=== PATIENT | female | born 1945 | race Caucasian/White ===

== ENCOUNTER 2023-07-22 11:57 | Emergency (ER) | payer MEDICARE, OTHER, SELFPAY ==
[2023-07-22 12:17] VITALS: BP 110/64
--- NOTE | 2023-07-22 13:49 | ED.GENMED ---
History of Present Illness
General
Chief Complaint: Head Injury
Time Seen by Provider: 07/22/23 13:22
Travel History
Have you had any contact with someone who has COVID-19?: No
Do you have any symptoms of coronavirus? Fever > 100 degrees, chills, cough, shortness of breath, sore throat, loss of taste or smell, muscle aches, or headache?: No
History of Present Illness
History of Present Illness:
HPI: Patient presents after a fall that occurred last night. She states she tripped on her long jacket causing her to strike the left periorbital region as well as her left knee (no significant pain to the left knee). She has no headache. She
denies being on anticoagulation or antiplatelets. She has no dizziness.
EXAM:
GENERAL: Well appearing in no distress
HEENT: Moist oral mucosa, there is periorbital ecchymosis along with medial subconjunctival hemorrhage to the left eye, there is tenderness over the frontal bone above the left eye, hearing aids noted
CARDIOVASCULAR: No murmurs, normal heart rate and rhythm, No chest wall tenderness
PULMONARY: No respiratory distress, breath sounds are clear and equal
ABDOMEN: Soft with no peritoneal signs, no tenderness
NEUROLOGIC: Excellent strength all extremities, no coordination deficits
PSYCHIATRIC: Appropriate mental status, normal insight and judgement
EXTREMITIES: Nontender, no edema, moves all extremities equally
SKIN: No rash, no lesions
ED COURSE:
1:30 PM: I initially evaluated patient
NUMBER AND COMPLEXITY OF PROBLEMS ADDRESSED AT THE ENCOUNTER
� Chronic conditions affecting care: Diverticular disease, hard of hearing, anxiety depression, has had bilateral knee replacements
� Acute Exacerbation and/or Progression of Chronic Illness:
� Differential Diagnosis includes:
AMOUNT AND/OR COMPLEXITY OF DATA TO BE REVIEWED AND ANALYZED
� I performed an independent evaluation of and my interpretation is:
EKG:
CT: I personally viewed CT imaging of the brain and there is no traumatic acute abnormality
X-rays:
Laboratory Studies:
Other:
� Review of other/old records: I reviewed physical therapy notes regarding left shoulder pain from last month
� Clinical information was obtained by an independent historian: Spoke to at bedside
� Prescriptions/Medications Considered but not given:
� Further testing considered but not performed:
RISK OF COMPLICATIONS AND/OR MORBIDITY OR MORTALITY OF PATIENT MANAGEMENT
� Social determinants of health affecting care: Lives at home
� Discussion with other providers:
� Escalation of care including admission/observation vs risk of discharge considered: Given patient's age of 78 years along with evidence of craniofacial trauma, will obtain CT imaging of the brain. CT imaging unremarkable as of
4 PM. Will discharge to home.
Past History
Past History
ED Past Medical History: None
ED Past Surgical History: Appendectomy, Orthopedic and Other
Social History
Tobacco: Non-smoker
Personal:
Living: with family
Employment: Employed
Phy Exam
Physical Exam
Physical Exam:
See HPI
Course
Orders/Labs/Results
Orders:
Orders
07/22/23 13:31
CT Head W/o Iv Contrast Urgent
Comment:
Reason For Exam: head trauma, periorbital ecchymosis
Vital Signs
Initial and Last Documented VS:
Initial Vital Signs
Temp Pulse Resp BP Pulse Ox
97.9 F 100 18 110/64 97
07/22/23 12:17 07/22/23 12:17 07/22/23 12:17 07/22/23 12:17 07/22/23 12:17
Last Documented Vital Signs
Temp Pulse Resp BP Pulse Ox
97.9 F 100 18 110/64 97
07/22/23 12:17 07/22/23 12:17 07/22/23 12:17 07/22/23 12:17 01/30/24 12:17
*Critical Care Note
Total Time (30-74mins, 75-104mins- exclusive of procedures): Not Applicable
ED Attending Note
-
Portions of this chart may have been created with voice recognition software.� Occasional wrong word or��sound alike� substitutions may have occurred due to the inherent limitations of voice recognition software.
Discharge Plan
Departure
Patient Disposition: Home (Routine Discharge)
Date of Disposition: 07/22/23
Time of Disposition: 16:01
Patient with high blood pressure during this ER visit?: Yes
Discharge Problem:
Head injury
Instructions: Head Injury in Adults (DC)
Prescriptions:
No Action
acetaminophen 500 mg Tablet
1,000 mg PO Q6H Qty: 60 0RF
Rx Instructions:
DO NOT exceed >4000 mg daily.
hydrochlorothiazide 25 mg Tablet
25 mg PO PRN PRN (Reason: water retention) Qty: 1 0RF
Rx Instructions:
HOLD if systolic blood pressure <130 while on Tramadol.
meloxicam submicronized 5 MG capsule
15 mg PO DAILY Qty: 30 0RF
Rx Instructions:
Take with food.
Do NOT take within 2 hours of Aspirin.
amoxicillin 500 mg Capsule
2,000 mg PO PRN PRN (Reason: dental appt)
Rx Instructions:
dentist
hydroxyzine HCl 10 mg Tablet
10 mg PO PRN PRN (Reason: itching)
loratadine [Claritin] 10 mg Tablet
10 mg PO DAILY PRN (Reason: runny nose)
tramadol 50 mg Tablet
50 mg PO Q6H PRN (Reason: pain)
mupirocin 2 % ointment
1 applic topical BID Qty: 1 0RF
Referrals:
Apple Morley DO [Family Provider] -
Activity Restrictions/Additional Instructions:
The CAT scan of the brain shows no bleeding. Return here if worse.
Interventions
Interventions:
*Risk Screen - Suicide Last Done: 07/22/23 12:17
*General Assessment Last Done: 07/22/23 13:28
*Neglect/Abuse Screening Last Done: 07/22/23 12:17
ED- Fall Risk Assessment Last Done: 07/22/23 13:28
*ED COVID-19 Vaccine History Last Done: 07/22/23 12:17
ED- Neurological Assessment Last Done: 07/22/23 13:28
ED-Skin Assessment Last Done: 07/22/23 13:28
== END 2023-07-22 16:28 | disposition home or self-care (01) ==
LOC: EMR 11:57
PROVIDERS: EMERGENCY PHYSICIAN Emergency Medicine; FAMILY PHYSICIAN Family Medicine
DX: S09.90XA Unspecified injury of head, initial encounter (principal); S00.12XA Contusion of left eyelid and periocular area, initial encounter; S89.92XA Unspecified injury of left lower leg, initial encounter; W18.39XA Other fall on same level, initial encounter; R03.0 Elevated blood-pressure reading, without diagnosis of hypertension; H11.32 Conjunctival hemorrhage, left eye; Z96.653 Presence of artificial knee joint, bilateral; K57.90 Diverticulosis of intestine, part unspecified, without perforation or abscess without bleeding; H91.90 Unspecified hearing loss, unspecified ear; Z88.5 Allergy status to narcotic agent
CPT/HCPCS: 99284; 70450

== ENCOUNTER → 2023-09-12 14:25 | Outpatient (REF) | payer MEDICARE, OTHER, SELFPAY | LOC: WDC 14:25 | PROVIDERS: ATTENDING PHYSICIAN Internal Medicine Hematology & Oncology; FAMILY PHYSICIAN Family Medicine | DX: Z12.31 Encounter for screening mammogram for malignant neoplasm of breast (principal) | CPT/HCPCS: 77063; 77067 ==

== ENCOUNTER 2023-11-10 23:02 | Emergency (ER) | payer MEDICARE, OTHER, SELFPAY ==
[2023-11-10 23:10] VITALS: BP 112/78
--- NOTE | 2023-11-11 02:53 | ED.GENMED ---
History of Present Illness
General
Chief Complaint: Skin Surface Trauma
Source: patient
Exam Limitations: none
Time Seen by Provider: 11/11/23 02:31
Nursing documentation reviewed up to this point in time: agreed with
Travel History
Have you had any contact with someone who has COVID-19?: No
Do you have any symptoms of coronavirus? Fever > 100 degrees, chills, cough, shortness of breath, sore throat, loss of taste or smell, muscle aches, or headache?: No
History of Present Illness
History of Present Illness:
Patient presents to ED secondary to lower lip laceration, which occurred shortly arrival, when she tripped over and fell onto her 's walker. Patient denies any other injuries from the fall. Denies tooth ache. Denies jaw pain. Denies neck
pain.
Past History
Past History
ED Past Medical History: None
ED Past Surgical History: Appendectomy, Orthopedic and Other
Social History
Tobacco: Non-smoker
Personal:
Living: with family
Employment: Employed
Review of Systems
Review of Systems
Allergies reviewed?: Yes
All Other Systems: ROS reviewed and negative except as documented in HPI and ROS
Constitutional: Reports no symptoms
Skin: Reports other (Lip laceration)
Phy Exam
Physical Exam
Physical Exam:
Physical Exam
General: no apparent distress, not acutely ill. afebrile
Head: nc/at.
Neck: supple. normal range of motion
Neuro: alert and oriented. no focal neurological deficits
Skin: an approx 2cm superficial laceration noted over lower lip, not crossing vermilion border. no active bleeding
Psychiatric: well kept. interactive and cooperative
Course
Vital Signs
Initial and Last Documented VS:
Initial Vital Signs
Temp Pulse Resp BP Pulse Ox
97.9 F 84 22 112/78 98
11/10/23 23:10 11/10/23 23:10 11/10/23 23:10 11/10/23 23:10 11/10/23 23:10
Last Documented Vital Signs
Temp Pulse Resp BP Pulse Ox
97.9 F 84 22 112/78 98
11/10/23 23:10 11/10/23 23:10 11/10/23 23:10 11/10/23 23:10 11/10/23 23:10
Procedures
Laceration Closure
Lower Lip:
Status of Wound: clean
Size of Wound in cm: 2
Description of Wound Edges: sharp
Preparation: cleaned with SurClens
Anesthesia: 1% Lidocaine with epi
Revision/Debridement: routine- no revision
Type of Closure: single layer closure
Skin Closure Material: 5-0 vicryl
Number of sutures: 4
MDM/Problems Addressed
MDM/Problems Addressed:
Wound well-approximated with 4 absorbable sutures. No other injuries noted on exam. Advised PCP follow-up, especially if sutures are still present after 10 days. Patient otherwise is afebrile, neurologically intact, at time of discharge, to the
care of her family.
*Critical Care Note
Total Time (30-74mins, 75-104mins- exclusive of procedures): Not Applicable
ED Attending Note
-
Portions of this chart may have been created with voice recognition software.� Occasional wrong word or��sound alike� substitutions may have occurred due to the inherent limitations of voice recognition software.
Discharge Plan
Departure
Patient Disposition: Home (Routine Discharge)
Date of Disposition: 11/11/23
Time of Disposition: 02:53
Patient with high blood pressure during this ER visit?: No
Condition: Good
Discharge Problem:
Laceration of lip
Instructions: Laceration Repair With Stitches (DC)
Prescriptions:
No Action
acetaminophen 500 mg Tablet
1,000 mg PO Q6H Qty: 60 0RF
Rx Instructions:
DO NOT exceed >4000 mg daily.
hydrochlorothiazide 25 mg Tablet
25 mg PO PRN PRN (Reason: water retention) Qty: 1 0RF
Rx Instructions:
HOLD if systolic blood pressure <130 while on Tramadol.
meloxicam submicronized 5 MG capsule
15 mg PO DAILY Qty: 30 0RF
Rx Instructions:
Take with food.
Do NOT take within 2 hours of Aspirin.
amoxicillin 500 mg Capsule
2,000 mg PO PRN PRN (Reason: dental appt)
Rx Instructions:
dentist
hydroxyzine HCl 10 mg Tablet
10 mg PO PRN PRN (Reason: itching)
loratadine [Claritin] 10 mg Tablet
10 mg PO DAILY PRN (Reason: runny nose)
tramadol 50 mg Tablet
50 mg PO Q6H PRN (Reason: pain)
mupirocin 2 % ointment
1 applic topical BID Qty: 1 0RF
Activity Restrictions/Additional Instructions:
As discussed, please follow-up with your primary care physician with any further concerns. If sutures are still present after 10 days, please speak with your primary care physician for potential removal.
Interventions
Interventions:
*Risk Screen - Suicide Last Done: 11/10/23 23:10
*Neglect/Abuse Screening Last Done: 11/10/23 23:10
Discharge Date and Time
Print Language: KOSOVAN
== END 2023-11-11 03:07 | disposition home or self-care (01) ==
LOC: EMR 23:02
PROVIDERS: EMERGENCY PHYSICIAN Emergency Medicine; FAMILY PHYSICIAN Family Medicine
DX: S01.511A Laceration without foreign body of lip, initial encounter (principal); W18.09XA Striking against other object with subsequent fall, initial encounter; K57.90 Diverticulosis of intestine, part unspecified, without perforation or abscess without bleeding; M19.90 Unspecified osteoarthritis, unspecified site; F41.9 Anxiety disorder, unspecified; F32.A Depression, unspecified; Z85.72 Personal history of non-Hodgkin lymphomas; Z96.611 Presence of right artificial shoulder joint; Z96.651 Presence of right artificial knee joint; Z88.5 Allergy status to narcotic agent; Z88.8 Allergy status to other drugs, medicaments and biological substances
CPT/HCPCS: 99282; 12011

== ENCOUNTER → 2024-03-08 14:05 | Outpatient (REF) | payer MEDICARE, OTHER, SELFPAY ==
[2024-03-08 14:25] LABS: Ionized Calcium 1.16 mMOL/L (1.15-1.33)
[2024-03-08 14:56] LABS: Mean Corp Hgb Conc. 33.3 g/dL (33.0-37.0); Mean Corpuscular Hgb 29.9 pg (27.0-31.0); Mean Corpuscular Volume 89.6 fL (81.0-99.0); Mean Platelet Volume 9.8 fL (7.4-10.4); Platelet Count 266 10^3/uL (130-400); Red Blood Cell Count 4.02 10^6/uL (4.20-5.40); White Blood Cell Count 12.9 10^3/uL (4.8-10.8)
[2024-03-08 15:03] LABS: ALT (SGPT) 31 U/L (0-35); AST (SGOT) 36 U/L (14-36); Albumin 4.3 g/dl (3.5-5.0); Alkaline Phosphatase 115 U/L (38-126); Blood Urea Nitrogen 21 mg/dl (7-17); Calcium 9.6 mg/dl (8.4-10.2); Carbon Dioxide 31 mmol/L (22-30); Chloride 102 mmol/L (98-107); Glucose 91 mg/dl (70-99); LDH 259 U/L (120-246); Sodium 142 mmol/L (135-145); Total Bilirubin 1.2 mg/dl (0.2-1.3); Total Protein 6.7 g/dl (6.3-8.2); eGFR > 60.00
[2024-03-08 16:28] LABS: Atypical Lymphocytes 20 %; Eosinophils 2 % (0-6); Lymphocytes 35 % (20-51); Monocytes 14 % (2-9); Normal RBC Morphology Yes; Platelets Checked Yes; Segmented Neutrophils 29 % (42-75); Total Cells Counted 100
[2024-03-10 11:51] LABS: Intact PTH 47.4 pg/ml (13.6-85.8)
== END ==
LOC: REG 14:05
PROVIDERS: ATTENDING PHYSICIAN Family Medicine
DX: J06.9 Acute upper respiratory infection, unspecified (principal); R05.1 Acute cough; R04.2 Hemoptysis; R21 Rash and other nonspecific skin eruption; E83.52 Hypercalcemia
CPT/HCPCS: 36415; 71046; 80053; 82330; 83615; 83970; 85025

== ENCOUNTER → 2024-03-16 14:40 | Outpatient (REF) | payer MEDICARE, OTHER, SELFPAY ==
[2024-03-16 15:33] LABS: Hematocrit 38.7 % (37.0-47.0); Hemoglobin 12.7 g/dL (12.0-16.0); Mean Corp Hgb Conc. 32.8 g/dL (33.0-37.0); Mean Corpuscular Hgb 30.6 pg (27.0-31.0); Mean Corpuscular Volume 93.3 fL (81.0-99.0); Mean Platelet Volume 10.1 fL (7.4-10.4); Platelet Count 213 10^3/uL (130-400); Red Blood Cell Count 4.15 10^6/uL (4.20-5.40); Red Cell Dist. Width 13.5 % (11.5-14.5)
[2024-03-16 15:49] LABS: ALT (SGPT) 35 U/L (0-35); AST (SGOT) 43 U/L (14-36); Albumin 4.4 g/dl (3.5-5.0); Alkaline Phosphatase 108 U/L (38-126); Blood Urea Nitrogen 29 mg/dl (7-17); Calcium 9.4 mg/dl (8.4-10.2); Carbon Dioxide 31 mmol/L (22-30); Chloride 103 mmol/L (98-107); Glucose 84 mg/dl (70-99); LDH 289 U/L (120-246); Potassium 4.6 mmol/L (3.5-5.1); Sodium 142 mmol/L (135-145); Total Bilirubin 1.5 mg/dl (0.2-1.3); Total Protein 6.7 g/dl (6.3-8.2); eGFR > 60.00
[2024-03-16 16:23] LABS: Absolute Neutrophils -Man Diff 4.2 10^3/uL (1.4-6.5); Atypical Lymphocytes 13 %; Band Neutrophils 0 % (0-3); Eosinophils 1 % (0-6); Lymphocytes 47 % (20-51); Metamyelocytes 1 % (-); Monocytes 10 % (2-9); Segmented Neutrophils 28 % (42-75)
[2024-03-16 16:28] LABS: Normal RBC Morphology Yes; Platelets Checked Yes; Total Cells Counted 100
== END ==
LOC: REG 14:40
PROVIDERS: ATTENDING PHYSICIAN Internal Medicine Hematology & Oncology; FAMILY PHYSICIAN Family Medicine
DX: C85.89 Other specified types of non-Hodgkin lymphoma, extranodal and solid organ sites (principal); C91.10 Chronic lymphocytic leukemia of B-cell type not having achieved remission
CPT/HCPCS: 36415; 80053; 82784; 83521; 83615; 84155; 84165; 85025; 86334

== ENCOUNTER 2024-03-23 14:45 | Emergency (ER) | payer MEDICARE, OTHER, SELFPAY ==
[2024-03-23 14:52] VITALS: BP 122/80
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
[2024-03-23 16:18] VITALS: BMI 26.3
[2024-03-23 16:58] LABS: ALT (SGPT) 39 U/L (0-35); AST (SGOT) 42 U/L (14-36); Albumin 4.5 g/dl (3.5-5.0); Alkaline Phosphatase 114 U/L (38-126); Blood Urea Nitrogen 23 mg/dl (7-17); Calcium 9.7 mg/dl (8.4-10.2); Carbon Dioxide 26 mmol/L (22-30); Chloride 101 mmol/L (98-107); Estimated Creatinine Clearance 58 ml/min; Glucose 92 mg/dl (70-99); Potassium 3.8 mmol/L (3.5-5.1); Sodium 140 mmol/L (135-145); eGFR > 60.00
[2024-03-23 17:00] LABS: Hematocrit 38.4 % (37.0-47.0); Mean Corp Hgb Conc. 33.9 g/dL (33.0-37.0); Mean Corpuscular Hgb 29.5 pg (27.0-31.0); Mean Corpuscular Volume 87.1 fL (81.0-99.0); Mean Platelet Volume 9.9 fL (7.4-10.4); Platelet Count 248 10^3/uL (130-400); Red Blood Cell Count 4.41 10^6/uL (4.20-5.40); Red Cell Dist. Width 13.6 % (11.5-14.5); Troponin I < 0.012 ng/ml; White Blood Cell Count 10.8 10^3/uL (4.8-10.8)
[2024-03-23 17:27] LABS: % Basophils 0.8 % (0-2); % Eosinophils 1.3 % (0-6); % Immature Granulocytes 0.2 % (0-0.5); % Lymphocytes 43.3 % (20.5-51.1); % Neutrophils 45.4 % (42.2-75.2); Absolute Basophils 0.1 10^3/uL (0-0.2); Absolute Eosinophils 0.1 10^3/uL (0-0.7); Absolute Lymphocytes 4.7 10^3/uL (1.2-3.4); Absolute Neutrophils 4.9 10^3/uL (1.4-6.5); Nucleated Red Blood Cells % 0 %
[2024-03-23 17:28] LABS: TSH Reflex To Free T4 0.15 uIU/ml (0.47-4.68)
[2024-03-23 17:58] LABS: Free T4 1.25 ng/dl (0.78-2.19)
== END 2024-03-23 18:33 | disposition home or self-care (01) ==
LOC: EMR 14:45
PROVIDERS: EMERGENCY PHYSICIAN Emergency Medicine; FAMILY PHYSICIAN Family Medicine
DX: R00.2 Palpitations (principal); Z90.49 Acquired absence of other specified parts of digestive tract
CPT/HCPCS: 99284; 70450; 80053; 84439; 84443; 84484; 85025; 93005

== ENCOUNTER → 2024-05-14 11:08 | Outpatient (REF) | payer MEDICARE, OTHER, SELFPAY | LOC: RAD 11:08 | PROVIDERS: ATTENDING PHYSICIAN Family Medicine | DX: H53.9 Unspecified visual disturbance (principal); I67.89 Other cerebrovascular disease; I47.20 Ventricular tachycardia, unspecified | CPT/HCPCS: 93880 ==

== ENCOUNTER → 2024-06-02 10:46 | Outpatient (REF) | payer MEDICARE, OTHER, SELFPAY ==
[2024-06-02 12:47] LABS: Erythrocyte Sed Rate 15 mm/hour (0-20)
[2024-06-02 14:16] LABS: ALT (SGPT) 26 U/L (0-35); AST (SGOT) 31 U/L (14-36); Albumin 4.5 g/dl (3.5-5.0); Alkaline Phosphatase 99 U/L (38-126); Blood Urea Nitrogen 31 mg/dl (7-17); Calcium 9.1 mg/dl (8.4-10.2); Carbon Dioxide 29 mmol/L (22-30); Chloride 103 mmol/L (98-107); Glucose 76 mg/dl (70-99); Iron 132 ug/dl (37-170); Potassium 4.4 mmol/L (3.5-5.1); Sodium 141 mmol/L (135-145); eGFR > 60.00
[2024-06-02 14:25] LABS: Percent Saturation 45 % (20-50); Total Iron Binding Capacity 291 ug/dl (265-497)
[2024-06-02 14:50] LABS: Free T4 0.91 ng/dl (0.78-2.19)
[2024-06-02 15:03] LABS: TSH 0.13 uIU/ml (0.47-4.68); TSH Reflex To Free T4 0.13 uIU/ml (0.47-4.68)
[2024-06-02 15:08] LABS: Ferritin 73.2 ng/ml (11.1-264.0)
== END ==
LOC: REG 10:46
PROVIDERS: ATTENDING PHYSICIAN Family Medicine; OTHER PHYSICIAN Internal Medicine Endocrinology, Diabetes & Metabolism
DX: L29.9 Pruritus, unspecified (principal); E21.0 Primary hyperparathyroidism; E05.90 Thyrotoxicosis, unspecified without thyrotoxic crisis or storm
CPT/HCPCS: 36415; 80053; 82728; 83540; 83550; 84439; 84443; 85652; 86140

== ENCOUNTER → 2024-06-07 15:03 | Outpatient (REF) | payer MEDICARE, OTHER, SELFPAY | LOC: RCS 15:03 | PROVIDERS: ATTENDING PHYSICIAN Nurse Practitioner; FAMILY PHYSICIAN Family Medicine | DX: R00.2 Palpitations (principal); R42 Dizziness and giddiness; I10 Essential (primary) hypertension | CPT/HCPCS: 93306 ==

== ENCOUNTER → 2024-09-08 08:52 | Outpatient (REF) | payer MEDICARE, OTHER, SELFPAY ==
[2024-09-08 10:17] LABS: Hematocrit 39.4 % (37.0-47.0); Hemoglobin 12.9 g/dL (12.0-16.0); Mean Corp Hgb Conc. 32.7 g/dL (33.0-37.0); Mean Corpuscular Hgb 29.8 pg (27.0-31.0); Mean Platelet Volume 10.5 fL (7.4-10.4); Platelet Count 199 10^3/uL (130-400); Red Blood Cell Count 4.33 10^6/uL (4.20-5.40); White Blood Cell Count 11.1 10^3/uL (4.8-10.8)
[2024-09-08 11:04] LABS: Absolute Neutrophils -Man Diff 3.1 10^3/uL (1.4-6.5); Atypical Lymphocytes 22 %; Band Neutrophils 0 % (0-3); Eosinophils 3 % (0-6); Lymphocytes 37 % (20-51); Monocytes 10 % (2-9); Segmented Neutrophils 28 % (42-75); Total Cells Counted 100
[2024-09-08 11:05] LABS: Platelets Checked Yes
[2024-09-08 11:07] LABS: Normal RBC Morphology Yes
[2024-09-08 12:36] LABS: Free T4 0.94 ng/dl (0.78-2.19)
[2024-09-08 12:50] LABS: TSH 0.29 uIU/ml (0.47-4.68)
[2024-09-08 13:09] LABS: ALT (SGPT) 24 U/L (0-35); AST (SGOT) 28 U/L (14-36); Albumin 4.5 g/dl (3.5-5.0); Alkaline Phosphatase 111 U/L (38-126); Blood Urea Nitrogen 30 mg/dl (7-17); Calcium 9.3 mg/dl (8.4-10.2); Carbon Dioxide 27 mmol/L (22-30); Chloride 102 mmol/L (98-107); Glucose 82 mg/dl (70-99); Potassium 4.2 mmol/L (3.5-5.1); Sodium 139 mmol/L (135-145); Total Protein 6.7 g/dl (6.3-8.2); eGFR > 60.00
[2024-09-08 13:55] LABS: LDH 217 U/L (120-246)
[2024-09-10 03:44] LABS: Thyroid Stim. Immunoglobulin <0.10 IU/L (<=0.54)
[2024-09-10 09:21] LABS: TSH Receptor Antibody <1.10 IU/L (<=1.75)
== END ==
LOC: REG 08:52
PROVIDERS: ATTENDING PHYSICIAN Internal Medicine Hematology & Oncology; FAMILY PHYSICIAN Family Medicine; REFERRING PHYSICIAN Internal Medicine Endocrinology, Diabetes & Metabolism
DX: C85.89 Other specified types of non-Hodgkin lymphoma, extranodal and solid organ sites (principal); C91.10 Chronic lymphocytic leukemia of B-cell type not having achieved remission; E05.90 Thyrotoxicosis, unspecified without thyrotoxic crisis or storm
CPT/HCPCS: 36415; 80053; 83520; 83615; 84439; 84443; 84445; 85025

== ENCOUNTER → 2024-10-01 15:21 | Outpatient (REF) | payer MEDICARE, OTHER, SELFPAY | LOC: WDC 15:21 | PROVIDERS: ATTENDING PHYSICIAN Internal Medicine Hematology & Oncology; FAMILY PHYSICIAN Family Medicine | DX: Z12.31 Encounter for screening mammogram for malignant neoplasm of breast (principal); C85.89 Other specified types of non-Hodgkin lymphoma, extranodal and solid organ sites; C91.10 Chronic lymphocytic leukemia of B-cell type not having achieved remission | CPT/HCPCS: 77063; 77067 ==

== ENCOUNTER → 2025-03-09 10:15 | Outpatient (REF) | payer MEDICARE, OTHER, SELFPAY ==
[2025-03-09 11:05] LABS: Hematocrit 37.7 % (37.0-47.0); Hemoglobin 12.5 g/dL (12.0-16.0); Mean Corp Hgb Conc. 33.2 g/dL (33.0-37.0); Mean Corpuscular Volume 89.3 fL (81.0-99.0); Platelet Count 203 10^3/uL (130-400); Red Cell Dist. Width 12.8 % (11.5-14.5)
[2025-03-09 11:56] LABS: Absolute Neutrophils -Man Diff 3.7 10^3/uL (1.4-6.5)
[2025-03-09 11:57] LABS: Normal RBC Morphology Yes; Platelets Checked Yes; Total Cells Counted 100
[2025-03-09 13:17] LABS: ALT (SGPT) 32 U/L (0-35); AST (SGOT) 28 U/L (14-36); Albumin 4.5 g/dl (3.5-5.0); Alkaline Phosphatase 98 U/L (38-126); Blood Urea Nitrogen 32 mg/dl (7-17); Calcium 9.7 mg/dl (8.4-10.2); Carbon Dioxide 27 mmol/L (22-30); Chloride 106 mmol/L (98-107); Glucose 80 mg/dl (70-99); Potassium 4.0 mmol/L (3.5-5.1); Sodium 140 mmol/L (135-145); Total Protein 6.9 g/dl (6.3-8.2); eGFR > 60.00
[2025-03-09 13:46] LABS: TSH 0.57 uIU/ml (0.47-4.68)
== END ==
LOC: REG 10:15
PROVIDERS: ATTENDING PHYSICIAN Family Medicine
DX: R61 Generalized hyperhidrosis (principal); C91.10 Chronic lymphocytic leukemia of B-cell type not having achieved remission; E21.0 Primary hyperparathyroidism
CPT/HCPCS: 36415; 80053; 82330; 83970; 84439; 84443; 85025

== ENCOUNTER → 2025-03-23 11:25 | Outpatient (REF) | payer MEDICARE, OTHER, SELFPAY ==
[2025-03-23 12:06] LABS: Hematocrit 39.2 % (37.0-47.0); Hemoglobin 12.9 g/dL (12.0-16.0); Mean Corp Hgb Conc. 32.9 g/dL (33.0-37.0); Mean Corpuscular Volume 90.1 fL (81.0-99.0); Platelet Count 223 10^3/uL (130-400); Red Cell Dist. Width 13.1 % (11.5-14.5)
[2025-03-23 12:26] LABS: ALT (SGPT) 34 U/L (0-35); AST (SGOT) 31 U/L (14-36); Albumin 4.6 g/dl (3.5-5.0); Alkaline Phosphatase 95 U/L (38-126); Blood Urea Nitrogen 28 mg/dl (7-17); Calcium 9.5 mg/dl (8.4-10.2); Carbon Dioxide 31 mmol/L (22-30); Chloride 104 mmol/L (98-107); Glucose 101 mg/dl (70-99); Potassium 4.1 mmol/L (3.5-5.1); Sodium 139 mmol/L (135-145); Total Protein 6.9 g/dl (6.3-8.2); eGFR > 60.00
[2025-03-23 13:14] LABS: Absolute Neutrophils -Man Diff 4.6 10^3/uL (1.4-6.5); Normal RBC Morphology Yes; Platelets Checked Yes; Total Cells Counted 100
[2025-03-23 16:52] LABS: LDH 220 U/L (120-246)
== END ==
LOC: REG 11:25
PROVIDERS: ATTENDING PHYSICIAN Internal Medicine Hematology & Oncology; FAMILY PHYSICIAN Family Medicine; OTHER PHYSICIAN Internal Medicine Endocrinology, Diabetes & Metabolism
DX: C85.89 Other specified types of non-Hodgkin lymphoma, extranodal and solid organ sites (principal); C91.10 Chronic lymphocytic leukemia of B-cell type not having achieved remission
CPT/HCPCS: 36415; 80053; 83615; 85025